=== PATIENT | female | born 1970 | race Caucasian/White ===

== ENCOUNTER 2018-07-21 10:46 | Emergency (ER) | payer SELFPAY ==
[2018-07-21 10:48] VITALS: BP 155/101; PULSE 110; RESP 16; TEMP 37.4; O2SAT 99; BMI 33.6
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
[2018-07-21] MEDS: Ibuprofen 600 MG Tablet PO (12:43)
--- NOTE | 2018-07-21 12:45 | ED.RN ---
DISCHARGE INSTRUCTIONS GIVEN TO AND REVIEWED WITH PATIENT, PATIENT DENIES QUESTIONS OR CONCERNS AND VOICES UNDERSTANDING OF DISCHARGE INSTRUCTIONS. PT AMBULATES OUT OF ROOM WITHOUT DIFFICULTY.
== END 2018-07-21 12:54 | disposition home or self-care (01) ==
LOC: ED 12:49
PROVIDERS: Emergency Provider Emergency Medicine
DX: S20.219A Contusion of unspecified front wall of thorax, initial encounter (principal); S16.1XXA Strain of muscle, fascia and tendon at neck level, initial encounter; S80.02XA Contusion of left knee, initial encounter; V89.2XXA Person injured in unspecified motor-vehicle accident, traffic, initial encounter; Y93.9 Activity, unspecified; Y92.410 Unspecified street and highway as the place of occurrence of the external cause; Y99.9 Unspecified external cause status
CPT/HCPCS: 71046; 99282

== ENCOUNTER 2019-01-17 16:54 | Emergency (ER) | payer OTHER, SELFPAY ==
[2019-01-17 16:55] VITALS: BP 155/96; PULSE 109; RESP 17; TEMP 36.8; O2SAT 96; BMI 35.4
[2019-01-17] MEDS: Diphth,Pertuss(Acell),Tet Vac 0.5 ML Vial IM (18:40)
--- NOTE | 2019-01-17 18:45 | RAD_ITS ---
STUDY: X-RAY - LEFT HAND, ATTENTION ANTERIOR FINGER REASON FOR EXAM: Female, 48 years old. Trauma TECHNIQUE: view(s) of the finger were obtained. COMPARISON: None. FINDINGS: The digit is intact and located. Soft tissues are unremarkable. RAD/Finger(s) Min 2 Views IMPRESSION: Normal x-ray examination of the finger. Electronically Signed: Romulo Oleary, at 18:59 EDT Tel , Service support ,
--- NOTE | 2019-01-17 20:17 | ED.VISSUMM ---
- ER Visit Summary Date of Service: 01/17/19 Chief Complaint: Left ring finger injury at work with laceration History of Present Illness: The patient is a 48 F right-hand dominant. No seen past medical history. Patient got her last ring finger caught and lacerated. Complaining of pain about the finger and the laceration. Unsure of her last tetanus or to be updated. Injury occurred around 1630 p.m. Physical Examination: Middle-aged female no acute distress vital signs stable afebrile. Lungs clear. Heart regular rhythm. Abdomen soft nontender. Left hand ring finger between the PIP and DIP skin creases she is a 3 cm laceration. It will need to be repaired. It involves the skin and subcu tissue. She has full flexion-extension of the left ring finger and all digits of the hand. The digit is neurovascular intact with normal cap refill touch sensation. There is oozing of blood. But no pulsatile bleeding. There is no gross bony deformity but she does have tenderness over the phalanx. Test Results: Left ring finger x-ray 2 view shows no acute abnormality read both myself and radiologist. No fracture. No foreign body. Emergency Department Course and Treatment: Procedure note: Left ring finger laceration 3 cm between the DIP and PIP skin crease. On the palmar side. 3 cm. Area was locally anesthetized with lidocaine. Washed with Shur-Clens and saline irrigated and explored. No foreign bodies were noted. No tendon injury was noted. Closed using four 4-0 Ethilon simple interrupted sutures. Proper hemostasis wound closure obtained. Patient tolerated procedure well. Treatment Plan: Wound care. Suture removal 10 days. Disposition: Discharge Impression: Left ring finger laceration with a 3 cm repair Worker's Comp. injury Tetanus updated This note was generated with [employer] dictation software. It may contain incorrect words, spelling, and punctuation that were not noted in review of the chart prior to signing ED Disposition - Plan for ED Patient: Referrals: Care Physician,No Primary [Primary Care Provider] -
--- NOTE | 2019-01-17 20:20 | ED.DEP ---
ED Disposition - Plan for ED Patient: Disposition: Home or Assisted Living Instructions: LACERATION, Hand Referrals: Corporate,Care [GROUP OF PHYSICIANS] - 10 Day for suture removal Additional Instructions: Keep wound clean and dry. Wash daily with soap and water. Apply antibiotic ointment. Ice and elevate. Tylenol and Motrin for pain. Suture removal in 10 days. Watch for any signs of infection is seen return.
== END 2019-01-17 21:04 | disposition home or self-care (01) ==
PROVIDERS: Emergency Provider Emergency Medicine
DX: S61.215A Laceration without foreign body of left ring finger without damage to nail, initial encounter (principal); W23.0XXA Caught, crushed, jammed, or pinched between moving objects, initial encounter; Y93.89 Activity, other specified; Y92.89 Other specified places as the place of occurrence of the external cause; Y99.0 Civilian activity done for income or pay; Z23 Encounter for immunization
CPT/HCPCS: 12002; 73140; 90471; 90715; 99283

== ENCOUNTER 2019-01-30 11:15 | Emergency (ER) | payer OTHER, SELFPAY ==
[2019-01-30 11:16] VITALS: BP 161/99; PULSE 110; RESP 16; TEMP 36.9; O2SAT 98; BMI 34.3
--- NOTE | 2019-01-30 11:31 | CT_ITS ---
STUDY: CT CHEST WITHOUT CONTRAST REASON FOR EXAM: Female, 48 years old. Rib pain following a fall. RADIATION DOSAGE (If Supplied By Facility): CTDIvol = ( 16.05 ) mGy, DLP = ( 625.85 ) mGycm TECHNIQUE: Transaxial imaging was performed without the administration of intravenous contrast material. Multiplanar coronal and sagittal images were reformatted. Individualized dose optimization techniques were used for this CT. COMPARISON: None. FINDINGS: Minimal atelectasis in the anterior aspect of the left lower lobe. There is no demonstrated pleural abnormality. Normal heart and pericardium. Normal mediastinum. Normal hilar regions. Normal unenhanced pulmonary arteries. Normal aorta arch and descending thoracic aorta. There are multi-level degenerative changes of the thoracic spine. Diffuse fatty infiltration. Hepatomegaly. Small hiatal hernia. CT/Chest without Contrast IMPRESSION: Hepatomegaly and fatty infiltration of liver. No acute abnormality is seen. Electronically Signed: Al Aguilar, at 12:55 EDT , Service support ,
[2019-01-30 11:32] VITALS: BP 144/89; PULSE 101; RESP 15; O2SAT 97
--- NOTE | 2019-01-30 12:01 | ED.DCSUM_ITS ---
- ER Visit Summary Date of Service: 01/30/19 Chief Complaint: Right chest wall pain History of Present Illness: The patient is a 48 F who states that 4 days ago (Saturday) she fell getting out of the bathtub striking her right anterior lower chest wall on the tub. States that today she came home from work and tried to sleep and woke with worsening pain. She tells me that she has not seen any blood in her urine. She denies any abdominal pain. No cough. No significant shortness of breath. Pain is worse with movement and touch. Physical Examination: Afebrile vital signs stable Gen: Well-nourished well-developed Head: Normocephalic atraumatic Eyes: Perrl EOMI ENT: TMs clear no rhinorrhea moist mucous membranes Neck: Supple no lymphadenopathy no JVD nontender CVS: Regular rate rhythm no murmurs normal S1-S2 Respiratory: No distress clear to auscultation bilaterally the mid ribs are exquisitely tender both posteriorly and anteriorly just underneath the right breast. No deformities. Abdomen: Soft nontender nondistended normal bowel sounds no masses Back: Nontender Extremity: Nontender no edema Skin: Normal color no rash Neuro: alert orientated ?3 CN II-XII intact normal strength sensation Psych: Normal affect normal mood Test Results: CT of the chest was obtained. This was negative for fracture pneumo or hemothorax Emergency Department Course and Treatment: Patient will be discharged home with conservative care. We talked about deep breathing. We talked about return instructions. Impression: 1. Right chest contusion This note was generated with [employer] dictation software. It may contain incorrect words, spelling, and punctuation that were not noted in review of the chart prior to signing ED Disposition - Plan for ED Patient: Disposition: Home or Assisted Living Instructions: Chest Wall Contusion Prescriptions: Hydrocodone Bitart/Apap 5-325 [Ewing 5MG-325MG] 1 tab PO Q6H PRN PRN 3 Days #12 tab PRN Reason: Pain Prescription Printed Referrals: Conor Soto MD [Primary Care Provider] - As Needed Additional Instructions: Motrin 600 mg every 6-8 hours for pain Ewing for severe pain. Each hour try to take several deep breaths. You may also find that holding a pillow to stabilize your ribs provide some comfort with movement and coughing.
[2019-01-30 13:13] VITALS: RESP 16
== END 2019-01-30 13:13 | disposition home or self-care (01) ==
PROVIDERS: Emergency Provider Emergency Medicine; Family Provider Internal Medicine; PCP Internal Medicine
DX: S20.211A Contusion of right front wall of thorax, initial encounter (principal); W18.2XXA Fall in (into) shower or empty bathtub, initial encounter; Y93.E1 Activity, personal bathing and showering; K76.0 Fatty (change of) liver, not elsewhere classified
CPT/HCPCS: 71250; 99282

== ENCOUNTER 2020-11-16 16:20 | Emergency (ER) | payer OTHER, SELFPAY ==
[2020-11-16] VITALS (7 sets, daily range): BP systolic 130–156; BP diastolic 87–100; PULSE 94–131; RESP 14–16; TEMP 36.3–37; O2SAT 97–99; BMI 27.4
--- NOTE | 2020-11-16 16:35 | CT_ITS ---
INDICATION: abdominal pain -- IV PO Contrast RUQ PAIN. ASCITES. Pancreatic Ca EXAMINATION: CT Abdomen And Pelvis W/ Contrast Injection TECHNIQUE: Helically acquired images were obtained of the abdomen and pelvis after IV contrast. A radiation dose optimization technique was used for this scan. IV Contrast dosage and agent: Oral and amp;amp;amp; IV Gastrografin and amp;amp;amp; 100mL Isovue-300 Oral contrast: Yes. COMPARISON: None. FINDINGS: Visualized lung bases: Calcified granuloma in the left lung base. Liver: Unremarkable Gallbladder: Unremarkable Spleen: Surgically absent. Pancreas: Evidence of partial pancreatic resection. There is an ill-defined mass in the region of the body/proximal tail of the pancreas at resection site measuring approximately 5.2 x 4.4 cm. This mass is inseparable from the adjacent transverse colon. Adrenal Glands: Unremarkable Kidneys: Unremarkable Vasculature: Unremarkable GI Tract: Evidence of partial large bowel resection. There is marked inflammatory changes surrounding the splenic flexure of the colon with marked bowel wall thickening. Lymphadenopathy: None Peritoneum: Large volume ascites. There is omental thickening, most notably seen in the left hemiabdomen. There are multiple peritoneal nodules for example, a 1.6 cm nodule deep to the anterior abdominal wall (image 58, series 2). Bladder: Distended Reproductive organs: Unremarkable Bones/Soft tissues: Mild scattered degenerative changes of the visualized spine. 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 This mass is inseparable from adjacent bowel (transverse colon and splenic flexure). There is marked bowel wall thickening in this area as well as marked surrounding inflammatory changes. It is unclear if there is invasion of the bowel and/or focal colitis. Large volume ascites with omental caking and peritoneal nodules concerning for peritoneal carcinomatosis. Electronically Signed: Jesse Vieira MD at 19:16 EDT Tel , Service support ,
--- NOTE | 2020-11-16 16:36 | EDS_ITS ---
HPI History of Present Illness Chief Complaint: Abd Pain Informant: patient and spouse/S.O. Narrative Narrative: 50-year-old female presenting for the evaluation of right upper quadrant abdominal pain. Patient states that she has stage IV pancreatic cancer and chemotherapy was stopped 4 weeks ago. She states that her abdomen feels more distended than normal. Her last CT about 3 weeks ago showed some ascites. She states that her swelling is better in the morning but is definitely more than before. She notes a sharp right upper quadrant pain that is constant. It radiates towards the flank. She denies any urinary symptoms. She notes nausea and decreased appetite but today was able to eat an egg piece of toast for breakfast and a smoothie for lunch. Patient denies any current fevers. Patient had a CT on 11/02/2020 that showed enlarging ill-defined soft tissue mass at the pancreatic resection site encasing the hepatic artery and abutting the posterior stomach likely recurrent disease. New small volume abdominal pelvic ascites with multiple new peritoneal implants consistent with worsening peritoneal carcinomatosis. Oncology is Dr. Orellana [facility] Medical History (Updated 11/16/20 @ 20:[address] Jameson Harrington DO) Pancreatic cancer Allergy/AdvReac Type Severity Reaction Status Date / Time shellfish derived Allergy Swelling Verified 11/16/20 16:23 Surgical History History of pancreatectomy S/P splenectomy Social History (Updated 11/16/20 @ 16:[address] Jameson Harrington DO) Smoking Status: Never smoker substance use type: does not use ROS ROS ED Constitutional Constitutional ED: Denies chills or weight loss Eyes Eyes: Denies change in vision or diplopia ENT ENT ED: Denies ear pain, rhinorrhea or sore throat Cardiovascular Cardiovascular: Reports other Details: Patient notes chronic tachycardia greater than 100 ; Denies chest pain, orthopnea, palpitations or racing heartbeat Respiratory/Chest Respiratory/Chest: Denies cough, dyspnea or orthopnea Gastrointestinal Gastrointestinal: Reports abdominal pain and nausea; Denies diarrhea or vomiting Genitourinary Genitourinary ED: Denies dysuria, hematuria or urinary frequency Musculoskeletal Musculoskeletal: Denies arthralgias or myalgias Integumentary Denies abscess or rash Neurologic Neurologic: Denies headache(s) or weakness Psychiatric Psychiatric: Denies anxiety, depression, suicidal ideation or suicidal thoughts Endocrine Endocrinology: Denies polydipsia, polyphagia or polyuria Allergic/Immunologic Allergic/Immunologic ED: Denies mouth swelling, tongue swelling or urticaria EXAM Physical Exam Const Vital Signs: 11/16/20 16:21 11/16/20 18:37 11/16/20 19:03 Temperature 98.2 F 97.3 F L 98.6 F Temperature Source Temporal Temporal Oral Pulse Rate 131 H 96 99 Respiratory Rate 15 14 16 Blood Pressure 156/87 H 145/100 H 144/98 H Blood Pressure Mean 110 115 113 Pulse Ox 97 99 99 Oxygen Delivery Method Room Air Room Air Room Air Positive well nourished and well developed General Appearance ED: well developed HEENT Reports normocephalic, head/scalp atraumatic and moist mucous membranes Eyes PERRL and EOMs intact bilaterally Neck no lymphadenopathy, supple and no JVD Resp normal respiratory effort and clear to auscultation bilaterally Cardio regular rate, regular rhythm and no murmurs GI GI Narrative: There is abdominal ascites. Patient is mildly diffusely tender in her abdomen but more so in the right upper quadrant. I do not appreciate reboun d. Inspection: abdominal distention Palpation: soft, tender and guarding Back/Spine no CVA tenderness and normal ROM Extremity normal to inspection General Extremety ED: Negative for edema General Extremity: Negative for edema Neuro oriented x3 and CN's II-XII intact bilaterally Sensorium / Orientation: alert Motor Exam: strength 5/5 throughout Psych mental status grossly normal Mood & Affect: Negative for depressed or tearful Skin no rashes or lesions noted and no wounds MDM MDM MDM Narrative Medical decision making narrative: Patient's white count is elevated at 17.6. The last white count I see was at the beginning of November and was slightly elevated at 11. Her CMP and lipase are negative. CT with oral IV contrast demonstrated 5.2 cm pancreatic mass at the resection site concerning for recurrent disease which we knew about. The mass however is inseparable from the adjacent bowel both the transverse colon and splenic flexure. There is marked bowel wall thickening in this area as well as marked surrounding inflammatory changes there is also large volume ascites with omental caking and peritoneal nodules. It is unclear to me if there is invasion of the bowel or a focal colitis. None of these findings though seem to explain the patient's sharp constant right upper quadrant pain. Patient was discussed with [facility]. They have accepted her in transfer. Patient received a dose of Zosyn while we awaited bed. She would like to go by private vehicle which I think is reasonable for her comfort. Lab Data Attestation: I reviewed the patient's lab results. Labs: Laboratory Results - last 24 hr 11/16/20 11/16/20 11/16/20 17:15 17:15 17:15 WBC 17.6 H RBC 4.51 Hgb 12.4 Hct 39.1 MCV 86.7 MCH 27.5 MCHC 31.7 L RDW Std Deviation 55.9 H RDW Coeff of Zhane 17.9 H Plt Count 538 H MPV 10.7 Immature Gran % (Auto) 0.300 Neut % (Auto) 60.9 Lymph % (Auto) 22.0 [place] % (Auto) 12.2 H Eos % (Auto) 4.1 Baso % (Auto) 0.5 Absolute Neuts (auto) 10.7 H Absolute Lymphs (auto) 3.87 Nucleated RBC % 0 Differential Comment Diff Path Review May foll Platelet Estimate MOD INC RBC Morphology N CHROM Anisocytosis 1+ Mabel Cells 1+ Schistocytes RARE PT 13.4 INR 1.1 APTT 29.7 Sodium 138 Potassium 3.7 Chloride 104 Carbon Dioxide 29.0 Anion Gap 5 BUN 5 L Creatinine 0.55 Estim Creat Clear Calc 108.02 Est GFR (MDRD) Af Amer 151 Est GFR (MDRD) Non-Af 125 BUN/Creatinine Ratio 9.1 L Glucose 92 Calcium 9.7 Total Bilirubin 0.50 AST 27 ALT 25 Alkaline Phosphatase 95 Total Protein 8.1 Albumin 3.4 Globulin 4.7 H Albumin/Globulin Ratio 0.7 L Lipase 23 L Urine Color Urine Clarity Urine pH Ur Specific [place] Urine Protein Urine Glucose (UA) Urine Ketones Urine Occult Blood Urine Nitrite Urine Bilirubin Urine Urobilinogen Ur Leukocyte Esterase Urine RBC Urine WBC Ur Squamous Epith Cells Urine Bacteria Urine Mucus 11/16/20 18:40 WBC RBC Hgb Hct MCV MCH MCHC RDW Std Deviation RDW Coeff of Zhane Plt Count MPV Immature Gran % (Auto) Neut % (Auto) Lymph % (Auto) [place] % (Auto) Eos % (Auto) Baso % (Auto) Absolute Neuts (auto) Absolute Lymphs (auto) Nucleated RBC % Differential Comment Diff Path Review Platelet Estimate RBC Morphology Anisocytosis Mabel Cells Schistocytes PT INR APTT Sodium Potassium Chloride Carbon Dioxide Anion Gap BUN Creatinine Estim Creat Clear Calc Est GFR (MDRD) Af Amer Est GFR (MDRD) Non-Af BUN/Creatinine Ratio Glucose Calcium Total Bilirubin AST ALT Alkaline Phosphatase Total Protein Albumin Globulin Albumin/Globulin Ratio Lipase Urine Color Yellow Urine Clarity Clear Urine pH 6.5 Ur Specific [place] 1.010 Urine Protein Negative Urine Glucose (UA) Normal Urine Ketones Negative Urine Occult Blood Negative Urine Nitrite Negative Urine Bilirubin Negative Urine Urobilinogen Normal Ur Leukocyte Esterase Negative Urine RBC 0 SEEN Urine WBC 0 SEEN Ur Squamous Epith Cells 0 SEEN Urine Bacteria 0 SEEN Urine Mucus 0 SEEN Radiography Diagnostic Testing: Radiology Impression Abdomen/Pelvis CT 11/16/20 16:35 IMPRESSION: 5.2 cm pancreatic mass at resection site concerning for recurrent disease. This mass is inseparable from adjacent bowel (transverse colon and splenic flexure). There is marked bowel wall thickening in this area as well as marked surrounding inflammatory changes. It is unclear if there is invasion of the bowel and/or focal colitis. Large volume ascites with omental caking and peritoneal nodules concerning for peritoneal carcinomatosis. Electronically Signed: Jesse Vieira MD at 19:16 EDT Tel , Service support , Discharge Plan Triage Chief Complaint: Abd Pain ED Provider: Jameson Harrington Dx/Rx/DC Orders Clinical Impression: Pancreatic adenocarcinoma, Abdominal ascites, Acute colitis, Abdominal pain, acute Primary Care Provider: Judy Harden Referrals: Judy Harden PA [Primary Care Provider] - Disposition Disposition: Acute Care Hospital Discharge Location: [facility]
[2020-11-16] MEDS: 0.9% Normal Saline 1,000 ML 999 ML IV (17:23)
[2020-11-16] MEDS: Morphine 4 MG/ML Syringe IV ×2 (17:23→19:38)
[2020-11-16 17:24] LABS: Absolute Lymphocyte Count 3.87 X10^3/uL (0.83-4.51); Absolute Neutrophil Count 10.7 X10^3/uL (2.0-7.7); Basophil# 0.08 X10^3/uL; Basophil% 0.5 % (0-1); Eosinophil# 0.72 X10^3/uL; Eosinophils% 4.1 % (0-5); Hematocrit 39.1 % (37-47); Hemoglobin 12.4 g/dL (12.0-15.0); Lymphocyte # 3.87 X10^3/ul (0.83-4.51); Mean Corp Hgb Conc 31.7 g/dL (32-36); Mean Corpuscular Hgb 27.5 pg (27.0-32.0); Mean Corpuscular Volume 86.7 fL (81-99); Mean Platelet Vol. 10.7 fl (6.2-12.0); Monocyte# 2.15 X10^3/uL; Monocyte% 12.2 % (0-10); NRBC Flagged by Analyzer 0 % (0-5); Neutrophil % 60.9 % (47-70); POSITIVE DIFFERENTIAL YES; Platelet Count 538 K/mm3 (150-450); RBC Distribution Width CV 17.9 % (11.6-14.6); RBC Distribution Width SD 55.9 fl (35.1-43.9); Red Blood Count 4.51 M/mm3 (4.2-5.4); White Blood Count 17.6 K/mm3 (4.4-11.0)
[2020-11-16] MEDS: Ondansetron 4 MG/2 ML Vial IV (17:24)
[2020-11-16 17:29] LABS: Differential Indicated SCAN CRITERIA MET
[2020-11-16 17:32] LABS: International Normalized Ratio 1.1; Partial Thromboplast Time 29.7 Seconds (24.1-36.2); Prothrombin Time (Protime)PT. 13.4 SECONDS (11.7-14.9)
[2020-11-16 17:35] LABS: ALB/GLOB Ratio 0.7 RATIO (0.9-2.4); AST(SGOT) 27 U/L (15-37); Alanine Aminotransfer ALT/SGPT 25 U/L (13-56); Albumin, Serum 3.4 g/dL (3.2-5.0); Alkaline Phosphatase 95 U/L (45-117); Anion Gap 5 (5-15); BUN 5 mg/dL (7-18); BUN/Creat Ratio 9.1 RATIO (10-20); Calcium,Total 9.7 mg/dL (8.5-10.1); Chloride 104 mmol/L (98-107); Creatinine, Serum 0.55 mg/dL (0.55-1.02); EST Glomerular Filtration Rate 125 mL/min (>60); Est Glom Filt Rate - Afr Amer 151 mL/min (>60); Estimated Creatinine Clearance 108.02 ml/min; Globulin 4.7 g/dL (2.2-4.2); Glucose 92 mg/dL (74-106); Lipase 23 U/L (73-393); Potassium 3.7 mmol/L (3.5-5.1); Protein, Total 8.1 g/dL (6.4-8.2); Sodium Level 138 mmol/L (136-145)
[2020-11-16 18:17] LABS: Anisocytosis 1+; Burr Cells 1+; Platelet Estimate MOD INC (ADEQ); Red Cell Morphology N CHROM NORMAL (NORM C&C); Schistocytes RARE
[2020-11-16 18:58] LABS: Bacteria 0 SEEN /hpf (None Seen); Mucous, Urine 0 SEEN /hpf (<or=2+); Red Blood Cells-Urine 0 SEEN /hpf (0-5); Squamous Epithelial Cells - UA 0 SEEN /hpf (5-10); White Blood Cells 0 SEEN /hpf (0-5)
[2020-11-16 19:20] LABS: Color, Urine Yellow (Yellow); Glucose, Dipstick Normal (Normal); Ketone-Dipstick Negative (Negative); Leukocyte Esterase-Dipstick Negative /ul (Negative); Nitrite-Dipstick Negative (Negative); Occult Blood-Urine Negative /ul (Negative); Protein-Dipstick Negative (Negative); Urine Bilirubin Dipstick Negative (Negative); Urine Clarity Clear (Clear); Urine Urobilinogen Normal (Normal); Urine pH 6.5 (5.0 - 8.0)
--- NOTE | 2020-11-16 23:09 | CCN.REFER ---
Daughter is driving patient home to have her take the patient to [facility] for admit
[2020-11-17 13:12] LABS: Pathologist Review Reviewed
== END 2020-11-16 23:14 | disposition short-term general hospital (02) ==
PROVIDERS: Emergency Provider Emergency Medicine; PCP Physician Assistant
DX: C25.9 Malignant neoplasm of pancreas, unspecified (principal); R18.8 Other ascites; K52.9 Noninfective gastroenteritis and colitis, unspecified; Z92.21 Personal history of antineoplastic chemotherapy
CPT/HCPCS: 36591; 74177; 80053; 81001; 83690; 85025; 85610; 85730; 96361; 96365; 96375; 96376; 99285; J7030; Q9967; A4216; J2405

== ENCOUNTER 2020-12-05 11:24 | Emergency (ER) | payer OTHER, SELFPAY ==
[2020-11-16 16:21] VITALS: BMI 27.4
[2020-12-05 11:25] VITALS: BP 130/82; PULSE 116; RESP 15; TEMP 36.7; O2SAT 95; BMI 27.3
--- NOTE | 2020-12-05 11:52 | VDLE_ITS ---
Reason For Study: pain Procedure LEFT This is a venous duplex using B-mode, color GSV is normal. flow and spectral Doppler. CFV is compressible, spontaneous, phasic, Exam performed portable in ED. competent, and demonstrates normal The exam was abbreviated due to the COVID 19 augmentation. protocol. FV is compressible, spontaneous, phasic, The exam was diagnostic. competent and demonstrates normal A preliminary report was called and/or faxed augmentation. to Dr. Dyson. POP V, T/P Trunk, PTV, Peroneal V, Gastroc V, and Soleus V are dilated and noncompressible. VL/Venous Duplex US, Unilateral Interpretation Summary Acute deep vein thrombosis is noted in the left popliteal vein. Acute deep vein thrombosis is noted in the left tibio-peroneal trunk. Acute deep vein thrombosis is noted in the le ft posterior tibial vein. Acute deep vein thrombosis is noted in the left peroneal vein. Acute deep vein thrombosis is noted in the left gastrocnemius vein. Acute deep vein thrombosis is noted in th e left soleus vein. The left common femoral vein and femoral vein are patent, compressible, and com petent. The left great saphenous vein appears patent and compressible segmentally. Ordering Physician: Cande Dyson Performed By: Dedrick Garrido, RVT
[2020-12-05] MEDS: APIXABAN 5 MG TABLET 10 MG PO (14:07)
--- NOTE | 2020-12-05 14:31 | ED.VIS.LOWEX ---
HPI History of Present Illness Chief Complaint: Lower Extremity Injury Informant: patient Narrative Narrative: Patient is a 50-year-old female with history of stage IV pancreatic cancer presenting with discomfort and swelling of her left lower extremity. Patient denies any trauma. She states it started with some slight swelling around her left ankle couple days ago. She notes she did not have any injury and did not sprain her ankle. She then developed discomfort in her calf. She describes it like a charley horse. She denies any new associated shortness of breath or difficulty breathing. No other complaints at this time. Patient notes that she has chronic shortness of breath associate with her cancer but this is unchanged not at baseline. [facility] Medical History Pancreatic cancer Home Medications apixaban [Eliquis DVT-PE Treat 30D Start] 5 mg PO BID #74 tab 12/05/20 [Rx Last Taken Unknown] Allergy/AdvReac Type Severity Reaction Status Date / Time shellfish derived Allergy Swelling Verified 12/05/20 11:27 Surgical History History of pancreatectomy S/P splenectomy Social History Smoking Status: Never smoker substance use type: does not use ROS ROS ED Constitutional Constitutional ED: Denies chills or fever(s) Eyes Eyes: Denies change in vision ENT ENT ED: Denies ear pain Cardiovascular Cardiovascular: Denies chest pain Respiratory/Chest Respiratory/Chest: Denies cough, dyspnea or dyspnea on exertion Gastrointestinal Gastrointestinal: Denies abdominal pain or vomiting Genitourinary Genitourinary ED: Denies dysuria Musculoskeletal Musculoskeletal: Reports other Details: Left ankle and calf pain/swelling ; Denies myalgias Integumentary Denies rash Neurologic Neurologic: Reports paresthesias LLE (Foot-chronic secondary neuropathy); Denies headache(s) or weakness Psychiatric Psychiatric: Denies anxiety or depression EXAM Physical Exam Const Vital Signs: 12/05/20 11:25 Temperature 98.1 F Temperature Source Temporal Pulse Rate 116 H Respiratory Rate 15 Blood Pressure 130/82 H Blood Pressure Mean 98 Pulse Ox 95 Oxygen Delivery Method Room Air Negative for well nourished or well developed General Appearance ED: Negative for well developed HEENT normocephalic and atraumatic Eyes PERRL Neck full ROM and supple Chest Wall inspection of chest normal Resp normal respiratory effort and clear to auscultation bilaterally Cardio regular rate, regular rhythm and no murmurs Extremity Extremity Narrative: Asymmetric edema of the left ankle. No palpable cords however patient does have mild tenderness to palpation of the left calf. 2+ bilateral DP pulses. No bony tenderness of the ankle. Neuro oriented x3 Sensorium / Orientation: alert Psych mental status grossly normal Skin Lesions: no lesions Rashes: no rashes MDM MDM MDM Narrative Medical decision making narrative: Patient evaluated for atraumatic swelling and discomfort of her left lower extremity. She does have metastatic cancer and is high risk for DVT. She does not have any associated chest pain or respiratory symptoms and is breathing comfortably in the room. Venous duplex does show DVT of the popliteal vein and distal veins. Discussed with oncology on-call for [facility] who recommend starting her on Eliquis. He did recommend checking patient's creatinine and platelet count however notes that they were normal on November 22. Patient states that she will just have her labs checked tomorrow does not want to have blood work at this time as she is not currently on any chemotherapy and there is no reason for her platelets to have dropped. Patient is counseled on the risk of bleeding on risk associated with being on anticoagulation. She denies having any recent black or bloody stool. She denies any history of GI bleed. She is given first dose of Eliquis in the emergency room. Patient is eager to go home. She is counseled on strict return precautions. She verbalizes agreement understand with this plan. Impression 1?DVT of the left lower extremity Discharge Plan Triage Chief Complaint: Lower Extremity Injury ED Provider: Cande Dyson Dx/Rx/DC Orders Instructions: ED Deep Vein Thrombosis (DVT) Prescriptions: New Eliquis DVT-PE Treat 30D Start 5 mg (74 tabs) tablets,dose pack 5 mg PO BID Qty: 74 RF: 0 Primary Care Provider: Judy Harden Referrals: Judy Harden PA [Primary Care Provider] - Activity Restrictions/Additional Instructions: Please follow-up for her lab work including a CBC and BMP this week to check your platelet count and your kidney function while being on this medication. Disposition Disposition: Home, Self Care Discharge Date/Time: 12/05/20 14:42
[2020-12-05 14:42] VITALS: BP 139/77; PULSE 64; RESP 15; O2SAT 98
== END 2020-12-05 14:42 | disposition home or self-care (01) ==
PROVIDERS: Emergency Provider Emergency Medicine; PCP Physician Assistant
DX: I82.432 Acute embolism and thrombosis of left popliteal vein (principal); C25.9 Malignant neoplasm of pancreas, unspecified
CPT/HCPCS: 93971; 99283